=== PATIENT | male | born 1935 | race Caucasian/White ===

== ENCOUNTER 2017-03-23 21:55 | Inpatient (IN) | payer MEDICARE, BC ==
[~2017-03-23] VITALS: Ht 180.3 cm; Wt 126.0 kg
--- NOTE | ~2017-03-23 | ECH ---
Transthoracic Echocardiography Report (TTE) Demographics Patient Name ALEXANDER BRADY Date of Study 03/24/2017 Patient Number [id number] Visit Number [id number] Date of 1935 Room Number 408 Accession Number [id number] Gender Male Age 81 year(s) Referring María Elena Elizalde [employer] Kenya Escamilla [facility] Physician Romie Casillas MD Physician Interpreting Bk Vivar MD Fire Engine Pump Operator Physician Supervising Ordering Physician María Elena Elizalde MD, MD/P Nurse Stress Critical Care Cns Conclusions Summary Technically fair exam. The estimated left ventricular ejection fraction is 55-60% in underlying atrial fibrillation. Moderate to severe left ventricular hypertrophy. The left atrium is mildly dilated by LA volume index measurement. Moderate to severe mitral annular calcification. ild to moderate mitral valve stenosis. The mean gradient is 7.79mmHg. The mitral regurgitation is very eccentric and the jet is anteriorly directed making it difficult to quantify severity. Mitral regurgitation is at least moderate. The patient is known to have a 25mm St Erich bioprosthetic aortic valve with a mean gradient of 8mmHg. The prosthetic aortic valve appears to function normally with no perivalvular leak. There is moderate pulmonary hypertension. The pulmonary pressure (RVSP) is 63 mmHg. Procedure Type of Study TTE procedure:Echo Complete SF. Procedure Date Date: 03/24/2017 Start: 09:25 AM Technical Quality: Fair due to body habitus. Indications:Shortness of breath, Congestive heart failure, Atrial fibrillation and Prosthetic valve function. Additional Indications:pacemaker Appropriate Use Criteria: 9 Height: 71 inches Weight: 274 pounds BSA: 2.41 m Rhythm: Atrial fibrillation HR: 70 bpm BP: 126/65 mmHg M-Mode/2D Measurements LV Diastolic Dimension: 3.95 cm LV Systolic Dimension: 2.42 cm LV Septum Diastolic: 2.04 cm LV PW Diastolic: 1.41 cm AO Root Dimension: 2.96 cm LA Dimension: 5.53 cm RV Diastolic Dimension: 3.97 cm LA volume: 92.8 ml LA volume index: 39 ml/m LVOT VTI: 21.68 cm RV Base: 4.1 cm RV Mid: 2.8 cm RV Length: 7.2 cm Doppler Measurements AV Peak Velocity: 1.95 m/s MV Peak E-Wave: 1.56 m/s AV Peak Gradient: 15.21 mmHg AV Mean Gradient: 8.33 mmHg MV P1/2t: 60.1 msec LVOT Peak Velocity: 1.4 m/s MV Mean Gradient: 7.79 mmHg AV P1/2t: 451.9 msec MV Deceleration Time: 212.6 msec TR Velocity:3.81 m/s MV Area (PHT): 3.66 cm TR Gradient:58.06 mmHg PV Peak Velocity: 1 m/s Estimated RAP:5 mmHg PV Peak Gradient: 4.02 mmHg Estimated RVSP: 63 mmHg Estimated PASP: 63.06 mmHg RA Area: 24.47 cm Findings Left Ventricle The left ventricle is normal in size . Moderate to severe left ventricular hypertrophy. Diastolic function indeterminate due to patient's arrhythmia. Right Ventricle Right ventricle not well visualized. Left Atrium The left atrium is mildly dilated by LA volume index measurement. Right Atrium The right atrium is mild to moderately dilated. Mitral Valve Moderate to severe mitral annular calcification. Mild to moderate mitral valve stenosis. The mean gradient is 7.79mmHg. The mitral regurgitation is very eccentric and the jet is anteriorly directed making it difficult to quantify severity. Mitral regurgitation is at least moderate. Calcified chordae noted. Aortic Valve The patient is known to have a 25mm St Erich bioprosthetic aortic valve with a mean gradient of 8mmHg. The prosthetic aortic valve appears to function normally with no perivalvular leak. Tricuspid Valve Normal tricuspid valve structure and function. Mild-moderate tricuspid regurgitation by color Doppler. There is moderate pulmonary hypertension. The pulmonary pressure (RVSP) is 63 mmHg. Pulmonic Valve Normal pulmonic valve structure and function. Trivial pulmonic valve regurgitation by color Doppler. Pericardial Effusion No evidence of pericardial effusion. Epicardial fat pad noted. Miscellaneous Visualized portions of the aortic root and ascending aorta appear normal in size. Pleural Effusion No evidence of pleural effusion. Contractility Score LV regional wall motion:(0-Non visualized 1-Normal 2-Hypokinesis 3-Akinesis 4-Dyskinesis 5-Aneurysm) Signature
[~2017-03-23 21:55] MED LIST: ASPIRIN EC81 MG PO; BACTROBAN OINT.22 GM TP; CELEXA DPS20 MG PO; CELEXA40 MG PO; COREG DPS12.5 MG PO; COUMADIN2.5 MG PO; COUMADIN5 MG PO; DELTASONE DPS10 MG PO; DUONEB DPS3 ML IH; ECOTRIN81 MG PO; GLIPIZIDE ER2.5 MG PO; GLUCOTROL DPS5 MG PO; LASIX DPS20 MG PO; LASIX DPS80 MG PO; LIPITOR DPS40 MG PO; MAALOX DPS30 ML PO; MAPAP PM (TYLEN1 TAB PO; MUCINEX600 MG PO; OMEGA-3 DPS1000 MG PO; POTASSIUM PO; PRILOSEC DPS20 MG PO; PROSCAR DPS5 MG PO; PROVENTIL HFA6.7 GM IH; SANCTURA20 MG PO; SOTALOL PO; SOTALOL120 MG PO; SURFAK DPS240 MG PO; SURFAK240 MG PO; SYMBICORT 16010.2 GM IH; SYMBICORT160 MCG/6 IH; THERA1 EACH PO; TYLENOL DPS325 MG PO; VIBRAMYCIN-DPS100 M2 PO; VITAMIN D3400 UNIT PO; ZESTRIL DPS20 MG PO; ZYRTEC DPS10 MG PO
--- NOTE | 2017-03-26 10:13 | CO ---
ADMIT: 03/24/2017 RM/LOC: 316 [facility] MR#: [id number] [address] [address] ALEXANDER BRADY [address] [place] [address] Consultation SEX: M AGE: 81 : 1935 DATE OF CONSULTATION: 03/24/2017 ATTENDING PHYSICIAN: Bibi Ring MD CONSULTING PHYSICIAN: Eric Thomas MD HISTORY OF PRESENT ILLNESS: Mr. Brady is a very pleasant, unfortunate, 81- year-old, white male with multiple medical problems, fairly complicated and complex. He has a history of chronic atrial fibrillation, previous porcine bioprosthetic aortic valve replacement, previous pacemaker, on rate control and anticoagulant therapy. He also has moderate pulmonary hypertension. He has significant restrictive lung disease, carries a diagnosis of COPD, but has never smoker, and reviewing the most recent pulmonary function testing that I had actually showed normal flow rates, with an FEV1/FVC ratio of 75%. The FVC was low at 44% and FEV1 of 51%. He is on chronic oxygen therapy. Pulmonary history is significant for fall at least 2 or almost 3 years ago with an acute ground level fall, multiple rib fractures on the left side. He had what appears to be hemothorax, eventually developed into a loculated pleural effusion/pleural rind and trapped lung on the left side. As mentioned above, he subsequently is on chronic oxygen therapy at 3 L/minute. He was last hospitalized at [facility] in November 2016. He was brought into the Emergency Department on 03/23/2017 with increasing shortness of breath. Shortness of breath was rather sudden in onset. It lasted for about a day. He had been doing fairly well throughout most of the day on the , and then after dinner, his went to bed around 9 o'clock. He started experiencing significant shortness of breath, called her, and she summoned the rescue squad, who brought him into the emergency department, where he was evaluated. Initially in the Emergency Department, was reported to have some rhonchi and wheezes. He was placed on BiPAP, and stabilized. Was transferred to the floor, but requiring relatively high levels of supplemental oxygen. Was really unable to maintain his breathing without the BiPAP. He had subsequently transferred to the ICU and placed on high-flow oxygen via Airvo, currently at 50% with saturations in the mid 90s and relatively comfortable. He currently denies any chest pain. Denies significant cough or sputum production. Does have history of obstructive sleep apnea, supposed to be on CPAP, but ADMIT: 03/24/2017 RM/LOC: 316 [facility] MR#: [id number] [address] [place] [id number] ALEXANDER BRADY [address] [place] [address] Consultation SEX: M AGE: 81 : 1935 admits that he has not really been using it on a regular basis. PAST MEDICAL HISTORY: Significant for aortic valve disease. He underwent replacement with porcine St. Erich bioprosthetic valve. He has a history of moderate pulmonary hypertension, and current echocardiogram shows right ventricular systolic pressure of 68 mmHg. He has history of chronic atrial fibrillation, has a pacemaker in place, and is on combination of rate control and anticoagulant therapy. He has had previous partial colectomy for benign process. He has diabetes mellitus. He has morbid obesity. ALLERGIES: HE HAS NO KNOWN OR LISTED MEDICAL ALLERGIES. MEDICATIONS: List of home medications reviewed in the electronic medical record includes: 1. Glipizide 2.5 mg per evening. 2. Citalopram 20 mg daily. 3. Multivitamin daily. 4. Carvedilol 12.5 mg b.i.d. 5. Finasteride 5 mg daily. 6. Trospium 20 mg b.i.d. 7. Furosemide 80 mg b.i.d. 8. Warfarin 5 mg alternating with 2.5 mg. 9. Aspirin 81 mg daily. 10.Symbicort 160/4.5 two puffs b.i.d. 11.Cetirizine 10 mg daily. 12.Fish oil 2 g b.i.d. 13.Omeprazole 20 mg daily. 14.Surfak 240 mg daily. SOCIAL HISTORY: He is , retired, lives at home with his . He is a never smoker. FAMILY HISTORY: Noncontributory. REVIEW OF SYSTEMS: As above. All organ systems reviewed. Significant positives and negatives discussed above. Additionally, he and his very fastidious about monitoring his weight. They also watch for any swelling. As mentioned above, he denies any chest pain or chest pressure. His only significant complaint was that he felt that he had abdominal bloating yesterday after dinner, but no recent change in bowel or bladder function, no diarrhea or constipation. He does have known history of aspiration, but is very careful with his diet, taking small bites, using chin tuck, and does not admit to any recent episodes ADMIT: 03/24/2017 RM/LOC: 316 [facility] MR#: [id number] [address] [place] [id number] ALEXANDER BRADY [address] [place] [address] Consultation SEX: M AGE: 81 : 1935 of aspiration. PHYSICAL EXAMINATION: VITAL SIGNS: Currently, afebrile, T-max 99.6. Blood pressure currently 178/93, pulse was 76. Oxygen saturation was 93% on 50% Airvo high-flow nasal cannula. Weight was 274 pounds. GENERAL: This is a well developed, well nourished, obese white male, currently in no acute respiratory distress on the high-flow Airvo. HEENT: Head to be normocephalic and atraumatic. Pupils equal and reactive. Nares patent with clear drainage. Posterior hypopharynx with an excess amount of soft tissue, Mallampati score of III. NECK: Supple. No jugular venous distention. CHEST: Decreased diaphragm excursion, mild to moderate kyphosis, diminished breath sounds particularly in the left lung base, but no rales, rhonchi, or wheezes were noted. HEART: Irregular, with a 2/6 systolic murmur. ABDOMEN: Obese, soft, nondistended, and nontender. Normal bowel sounds. No guarding or rigidity is noted. No organomegaly palpable. No hernias noted with the exception of an umbilical hernia. EXTREMITIES: With trace of lower extremity edema, but good peripheral pulses. No focal neurologic deficits noted. Mood and affect were appropriate. DIAGNOSTIC DATA: Review of his chest x-ray shows chronic cardiomegaly. Shows some chronic interstitial changes in the lung bases, atelectasis in the left lung, with loculated effusion on the left and previous rib fractures. Other labs reviewed are relatively unremarkable. ASSESSMENT AND PLAN: He is admitted with acute on chronic hypoxic respiratory failure, which is multifactorial. He has severe restrictive lung disease secondary to probable previous fall with rib fractures and loculated hemothorax as well as obesity. At this point in time, we will continue supplemental oxygen. Continue nebulizer treatments. He has been started on the antibiotic. We will continue this until we get the cultures back. He does have mild elevation of his white blood cell count with a left shift, but procalcitonin level was normal. He has morbid obesity. He has obstructive sleep apnea on chronic oxygen therapy though intolerant of CPAP. He has history of chronic atrial fibrillation with pacemaker in place, on rate ADMIT: 03/24/2017 RM/LOC: 316 [facility] MR#: [id number] [address] [id number] ALEXANDER BRADY [address] [place] [address] Consultation SEX: M AGE: 81 : 1935 control on chronic anticoagulant therapy. He has previous history of porcine aortic valve replacement. He has diabetes mellitus type 2. Significant debility and deconditioning. At this point in time, continue with his supplemental oxygen, nebulized medications, continue the IV antibiotics and IV diuresis. CT scan is ordered, we will see what that shows, if that directs us at any other way and follow here with you while in the hospital. Eric Thomas MD/ selenal JOB #: [id number] CC: Bibi Ring MD, Attending Physician Bibi Ring MD, Family Physician
--- NOTE | 2017-03-28 01:25 | ER ---
ADMIT: 03/23/2017 RM/LOC: ER [facility] MR#: [id number] [address] [phone] ALEXANDER BRADY [place] [address] [place] [address] Emergency Room Report SEX: M AGE: 81 : 1935 DATE: 03/23/2017 See T-sheet for complete H and P. ADDENDUM: CHIEF COMPLAINT: Shortness of breath. HISTORY OF PRESENT ILLNESS: An 81-year-old male, comes in complaining of shortness of breath that has been going on over the past approximately 8 hours, but got significantly worse around 7:00 p.m. this evening. He has had this happen before. He is treated for CHF and has COPD. For his COPD, he is normally on 3 L of oxygen all the time and uses CPAP at night and sees a starch mangle tender in [place]. He denies any chest pain. He has not been having any weight gain that he is aware of or new swelling in his lower extremities. Denies any fevers or chills. REVIEW OF SYSTEMS: A 10-point review of systems is done and otherwise negative except as in HPI. PAST MEDICAL HISTORY: Significant for chronic AFib, coronary artery disease, hypertension, COPD. PAST SURGICAL HISTORY: The patient has had an appendectomy, resection of part of his colon, aortic valve replacement with porcine valve, and thoracentesis of left-sided pleural effusion. MEDICATIONS: See T-sheet. He does take: 1. Lasix. 2. Coumadin. ALLERGIES: NONE. SOCIAL HISTORY: Denies smoking, drug, or alcohol use. Lives with his . PHYSICAL EXAMINATION: See T-sheet for complete physical exam. GENERAL: The patient is in mild respiratory distress on arrival and tachypneic. LUNGS: He does have some rhonchi and wheezes throughout and decreased breath sounds in the bases. HEART: He does have an irregular rhythm, but not tachycardic. LABORATORY AND IMAGING DATA: Chest x-ray shows scarring on the left side which does not appear new, but likely does have increased pulmonary edema and CHF. His white count is 12.4, platelets 144. Chemistries are normal other than a BUN of 29 and glucose of 165, with BNP is 4578, procalcitonin is less than 0.05, and lactic acid is 1.2. Urinalysis is normal and INR is 2.53. ABG on supplemental oxygen and BiPAP shows a pH 7.4, pCO2 of 45.6, and PO2 of 80. EKG shows AFib, paced rhythm with a rate of 70. ADMIT: 03/23/2017 RM/LOC: ER [facility] MR#: [id number] [address] [address] ALEXANDER BRADY [address] [place] [address] Emergency Room Report SEX: M AGE: 81 : 1935 EMERGENCY DEPARTMENT COURSE: We did continue the patient on BiPAP as he was on it when he arrived. He did get breathing treatments en route by EMS. He also received 80 mg of Lasix IV en route. The patient and his report that he is much more comfortable on presentation to the ER than he was at home and during transportation here by EMS. Our workup here showed that he likely has worsening CHF, and I believe he would benefit from further management of his CHF with admission. I did order the patient a dose of Levaquin even though I think this is not likely pneumonia, but with his severe lung disease, we will cover him with initial dose of Levaquin. I spoke to Dr. Gunderson, who is on for the patient's primary care physician, Dr. Ring, who will be writing admission orders. He is admitted in improved condition with; DIAGNOSES: 1. Chronic obstructive pulmonary disease exacerbation. 2. Shortness of breath. 3. Congestive heart failure. 4. Chronic atrial fibrillation. Navneet Cordoba MD/ mango JOB #: [id number] CC: Navneet Cordoba MD, Attending Physician
--- NOTE | 2017-04-05 08:28 | HP ---
ADMIT: 03/24/2017 RM/LOC: 408 [facility] MR#: [id number] [address] [address] ALEXANDER BRADY [address] [place] [address] History and Physical SEX: M AGE: 81 : 1935 DATE OF SERVICE: HISTORY OF PRESENT ILLNESS: Mr. Brady presents to the ER with increasing shortness of breath over the last 24 hours with some weight gain of approximately 4 pounds over the course of the week. He is admitted with increasing shortness of breath. He has a past medical history of diastolic heart failure, chronic atrial fibrillation, history of permanent pacemaker status post aortic valve replacement on chronic anticoagulation. His last echo was done in 2016, which showed evidence of left atrial enlargement, ejection fraction 55%, mild concentric LVH, normal ventricular structure, left atrium is severely dilated Saint Erich aortic valve, mild aortic regurgitation, mild tricuspid regurgitation, moderate pulmonary hypertension. He is on chronic anticoagulation. He has had a history of severe COPD. He is CPAP dependent at night. O2 dependent. History of sleep apnea utilizing CPAP, obesity, history of permanent pacemaker, history of hypertension. He has a history of chronic renal insufficiency, history of antithrombin three deficiency, on chronic anticoagulation. He is status post partial colectomy for benign process as well as aortic valve replacement. He was seen and evaluated in the emergency room with increasing shortness of breath earlier this morning. His pH was 7.401, pCO2 of 45, PO2 of 80, sodium 138, potassium 4.0, BUN and creatinine 33 and 1.5. Blood sugar 170, CK-MB, troponin were within normal limits. BNP was elevated at 4576. INR is 2.50. White count 10.5, hemoglobin 14.0, and platelet count 150,000. UA was negative. Chest x- ray showed cardiomegaly with interstitial thickening, ground-glass opacifications on left side, questionable pleural effusion. At this time, he is admitted for concerns about COPD exacerbation as well as progressive worsening diastolic heart failure. In the emergency room, he was subsequently transferred to the general floor. SOCIAL HISTORY: He lives with his . No tobacco or alcohol. FAMILY HISTORY: Noncontributory. REVIEW OF SYSTEMS: As per HPI. He has not had any chest pain or chest pressure. Has had progressive increasing shortness of breath and respiratory distress. Does report a cough with some very mild yellow sputum. He has had 5 pounds of weight gain. Does not have any peripheral edema that he is aware of. He does complain of some vague nausea, sickness to his stomach but has not had any vomiting. CURRENT MEDICATIONS: He is on: 1. Carvedilol 12.5 mg b.i.d. 2. Citalopram 20 mg daily. 3. Coumadin 5 mg daily. 4. Finasteride 5 mg daily. 5. Lasix 80 b.i.d. 6. Glipizide 5 mg. 7. Symbicort a.m. and p.m., 2 puffs. ADMIT: 03/24/2017 RM/LOC: 408 [facility] MR#: [id number] [address] [place] [id number] [facility] [address] [facility] [place] [address] History and Physical SEX: M AGE: 81 : 1935 PHYSICAL EXAMINATION: GENERAL: He is alert. He is dyspneic. VITAL SIGNS: His SaO2 on room air will be 92 at rest but with talking and moving around will drop into the mid 80s. HEENT: Normal. HEART: Irregular rhythm with valvular click. LUNGS: Clear, but diminished to auscultation. ABDOMEN: Rounded, protuberant. Positive bowel sounds present. Nontender. EXTREMITIES: No evidence of edema. ASSESSMENT AND PLAN: Admission of an elderly white gentleman who has: 1. Severe chronic obstructive pulmonary disease. 2. History of chronic interstitial scarring left base with interstitial lung disease. 3. Chronic ongoing hypoxia and hypercarbia. 4. History of recurrent acute right-sided lower lobe pneumonia, but no significant evidence of pneumonia at this time. 5. Severe chronic obstructive pulmonary disease, concerns about early pneumonia versus exacerbation of bronchitis, history of chronic infiltrate. 6. Sleep apnea. 7. Hypoxia. 8. Diastolic heart failure. 9. History of known left atrial enlargement, status post aortic valve replacement. 10.Mild pulmonary hypertension. 11.Permanent pacemaker. 12.Chronic atrial fibrillation on chronic anticoagulation. 13.Diabetes. 14.Evidence of nausea with abdominal fullness. At this time, we will evaluate that with an ultrasound of his abdomen. He will be started on IV antibiotics as well as IV diuresis. We will ask Cardiology to follow as he sees them as an outpatient. In addition, aggressive pulmonary hygiene with DuoNeb breathing treatments as well as with his continue his CPAP at night and continuous oxygen therapy. We will continue to follow closely. Bibi Ring MD/ mango JOB #: [id number] CC: Bibi Ring MD, Attending Physician Bibi Ring MD, Family Physician
--- NOTE | 2017-04-08 08:16 | DS ---
ADMIT: 03/24/2017 RM/LOC: 301 [facility] MR#: [id number] [address] [address] ALEXANDER BRADY [address] [place] [address] Discharge Summary SEX: M AGE: 81 : 1935 ADMISSION DATE: 03/24/2017 DISCHARGE DATE: 03/30/2017 SUMMARY: His diagnosis at the time of his was progressive respiratory failure, hypoxia, CO2 retention, shock liver, evidence of congestive heart failure, worsening pneumonia, history of permanent pacemaker, chronic atrial fib, diabetes, sleep apnea, and history of diastolic heart failure. Mr. Brady was admitted to [facility] on 03/24/2017 with increasing shortness of breath. He was seen and evaluated in the emergency room. His pH was 7.40, pCO2 of 45, pO2 of 80, BNP of 4573, of INR of 2.50. His prior chest x-ray showed cardiomegaly with interstitial thickening, ground-glass opacities with questionable left-sided pleural effusion. He was initially admitted and placed on IV antibiotics as well as diuresis with Lasix. He in addition underwent further assessment with CT of his chest with contrast. He was seen by myself as well as was followed very closely by Pulmonary Medicine. With aggressive medical management, he had progressive shortness of breath, CO2 retention and required aggressive support with BiPAP. I was concerned that his interstitial pneumonia was secondary to aspiration versus heart failure. With diuresis, he had some slowly worsening progressive impairment in kidney function. Discussion was undertaken with the patient and family on 03/26 as he was having increasing shortness of breath and respiratory distress. It was felt that if needed he will be placed on a ventilator. He had progressive decline in his respiratory processes and was placed on the ventilator on 03/26 at 2:30 in the afternoon. He was at that time started on Levophed for blood pressure management. He had progressive increase and has oxygen needs as well as developed marked elevation in liver function studies with development of progressive renal insufficiency. At that time, family made a decision and a decision was made for supportive care, and he subsequently was extubated and shortly afterwards. For the full body of his hospitalization, please see his medical records. Bibi Ring MD/ selenal JOB #: [id number] CC: Bibi Ring MD, Attending Physician Bibi Ring MD, Family Physician
--- NOTE | 2017-04-23 10:32 | CO ---
ADMIT: 03/24/2017 RM/LOC: [address] [facility] MR#: [id number] [address] [id number] ALEXANDER BRADY [address] [place] [address] Consultation SEX: M AGE: 81 : 1935 CORRECTED: 03/25/2017 0543 DJS DATE OF CONSULTATION: 03/24/2017 ATTENDING PHYSICIAN: Bibi Ring MD CONSULTING PHYSICIAN: Toni Grubbs MD REASON FOR CONSULT: Shortness of breath. Miranda Solano RN, scribing for Dr. Toni Grubbs. HISTORY OF PRESENT ILLNESS: Paul is a very pleasant 81-year-old gentleman, I have been asked to see in Cardiology consultation by Dr. Ring for shortness of breath. He follows with me regularly in [facility]. He was last seen on 02/26 at the office. He has history of normal coronaries per cardiac catheterization in 2009. 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 He does have history of permanent atrial fibrillation for which he is asymptomatic on anticoagulation with Coumadin. He also has history of hypertension, hyperlipidemia, and diabetes. He has family history of premature coronary artery disease as well. Paul has history of diastolic heart failure and COPD. Last echocardiogram was in May of 2016, showing ejection fraction of 55% with moderate pulmonary hypertension. Normal function of bioprosthetic aortic valve with severe left atrial enlargement. Last office visit on 02/26, his weight was 274 pounds. He was euvolemic. Denying any complaints at that time. He has done well from a rate strategy standpoint on Coreg as he did have worsening shortness of breath and fluid retention on sotalol in the past. Paul presented to [facility] yesterday with complaints of worsening shortness of breath and fever around 100.7. He states that he has not noted any significant peripheral edema, but was hypoxic and required BiPAP last night. He does have sleep apnea and uses CPAP at home. He denies any chest pain, palpitations, or presyncope. Currently, he is sitting up in the chair and has labored breathing on nasal cannula. His oxygen saturations are mid 80s to low 90s. PAST MEDICAL HISTORY: 1. History of tissue aortic valve replacement. 2. Hyperlipidemia. 3. Hypertension. 4. Diabetes. 5. Permanent atrial fibrillation. 6. Antithrombin III deficiency. 7. Osteoarthritis. 8. Chronic renal insufficiency. 9. COPD. 10.Depression. 11.Gout. ADMIT: 03/24/2017 RM/LOC: [address] [facility] MR#: [id number] [address] [place] [id number] ALEXANDER BRADY [address] [place] [address] Consultation SEX: M AGE: 81 : 1935 12.Kidney stones. 13.Morbid obesity. PAST SURGICAL HISTORY: Includes: 1. Colon resection. 2. Back surgery. 3. Knee replacement. 4. Hip replacement. 5. Appendectomy. 6. Valve replacement surgery for heart. ALLERGIES: NO KNOWN MEDICATION ALLERGIES. MEDICATIONS: Home medications continued, include: 1. Glipizide 2.5 daily. 2. Citalopram 20 daily. 3. Multivitamin daily. 4. Carvedilol 12.5 b.i.d. 5. Finasteride 5 daily. 6. Trospium 20 b.i.d. 7. His Lasix p.o. has been held. He was given IV Lasix. 8. Warfarin 5 mg every day, but 2.5 on Wednesday. 9. Aspirin 81 daily. 10.Symbicort 160 twice daily. 11.Maalox 10 mL p.r.n. 12.Cetirizine daily as needed. 13.Fish oil 2000 mg twice daily. 14.Omeprazole 20 daily. 15.Surfak 240 daily p.r.n. 16.Tylenol PM at bedtime. 17.Acetaminophen p.r.n. FAMILY HISTORY: Family history of premature coronary artery disease. He had a grandfather who had IL at the age of 64. His father also had a myocardial infarction, and positive family history of stroke in a brother, positive family history of diabetes, positive family history of cancer. SOCIAL HISTORY: Paul is to [place], they live at home. He has five children, all daughters. He still farms part-time. No tobacco use. No alcohol use. REVIEW OF SYSTEMS: GENERAL: Increased fatigue over the last few days; recent fever, current 99.0, he was 100.7 on admit. Weight is stable from 02/26 at 274. EYES: No vision changes, double vision, blurry vision. THROAT MOUTH AND EARS: Some hearing loss. Denies any sinus congestion or sore throat. RESPIRATORY: He is hypoxic. He is having difficulty breathing. He has ADMIT: 03/24/2017 RM/LOC: [address] [facility] MR#: [id number] [address] [place] [id number] ALEXANDER BRADY [address] [place] [address] Consultation SEX: M AGE: 81 : 1935 decreased breath sounds. He has history of COPD and obstructive sleep apnea, uses CPAP. Currently, he has labored breathing. No hemoptysis. GASTROINTESTINAL: Denies any current abdominal discomfort. He does have history of a colon resection and appendectomy, but denies any GI bleeding currently. GENITOURINARY: Chronic renal insufficiency. Denies dysuria, hematuria, nocturia, urinary tract infection, or kidney stones. MUSCULOSKELETAL: History of gout and osteoarthritis. He has chronic back pain. ENDOCRINE: History of diabetes. Denies thyroid issues. HEMATOLOGIC: Denies history of anemia, easy bruising, or cancer. NEUROLOGIC: Denies chronic headaches, dizziness, syncope, stroke, seizures or numbness or tingling. PSYCHIATRIC: Denies history of mental illness or feelings of depression. PHYSICAL EXAMINATION: VITAL SIGNS: Blood pressure is 126/65, heart rate 74, respirations 28, temperature 99.0, Oxygenation anywhere from 85% to 90% on 6 L nasal cannula. GENERAL: Labored breathing. SKIN: [place], warm and dry. EYES: Sclerae clear. No xanthelasmas. ENT: Oral mucosa is pink and moist. No jugular venous distention or carotid bruits. LUNGS: Diminished left base. HEART: Regular soft systolic murmur. ABDOMEN: Obese. MUSCULOSKELETAL: Gait is normal. EXTREMITIES: No edema noted PSYCHIATRIC: Alert and oriented. Mood and affect are appropriate. LABORATORY AND DIAGNOSTIC DATA: Echocardiogram performed this morning, shows ejection fraction of 55% to 60%, and atrial fibrillation, moderate to severe left ventricular hypertrophy, moderate to severe mitral annular calcification, [id number] mitral valve stenosis, at least moderate mitral regurgitation, bioprosthetic aortic valve with normal function. RVSP of 63 for moderate pulmonary hypertension. Sodium 138, potassium 4.0, BUN 30, creatinine 1.5, glucose 170. AST 14, ALT 20, magnesium 2.1. CK 67, MB 1.2, troponin 0.031, proBNP 4578, INR 2.5. White blood cell count 10.5, hemoglobin 13.6, hematocrit 42.3, platelets 150. ASSESSMENT AND PLAN: 1. Shortness of breath. 2. History of heart failure with preserved ejection fraction. 3. Prior aortic valve replacement. 4. Permanent atrial fibrillation. 5. Permanent pacemaker insertion. 6. Obesity. ADMIT: 03/24/2017 RM/LOC: [address] [facility] MR#: [id number] [address] [place] [id number] ALEXANDER BRADY [address] [place] [address] Consultation SEX: M AGE: 81 : 1935 Ray does have a history of fluid retention, but his weight is currently stable. He has little level evidence of significant fluid retention. Echocardiogram was already performed. I would recommend trying some IV Lasix and see how he responds. I am concerned about recurrent pneumonias and aspiration. Thank you for the consultation. "I have read and agree with the documentation that has been completed regarding this visit. By signing this record, I attest that the documentation was completed in my physical presence and is an accurate record of the encounter." Miranda Solano RN / Toni Grubbs MD / [employer] JOB #: [id number] CC: Bibi Ring MD, Attending Physician Bibi Ring MD, Family Physician CORRECTED: 03/25/2017 0543 DJS
== END 2017-03-30 10:13 | disposition expired | DRG 207 ==
LOC: ER 21:55 → 3ICU 03-24 00:27 → 4PCU 03-24 00:27 → 3ICU 03-24 12:57
PROVIDERS: ADMIT Internal Medicine
PROC: 0BH17EZ Insertion of Endotracheal Airway into Trachea, Via Natural or Artificial Opening (ICD-10-PCS; principal; 2017-03-26)
PROC: 5A1955Z Respiratory Ventilation, Greater than 96 Consecutive Hours (ICD-10-PCS; principal; 2017-03-26)
PROC: 3E0G76Z Introduction of Nutritional Substance into Upper GI, Via Natural or Artificial Opening (ICD-10-PCS; principal; 2017-03-26)
DX: J44.1 Chronic obstructive pulmonary disease with (acute) exacerbation (principal); K72.00 Acute and subacute hepatic failure without coma; J96.21 Acute and chronic respiratory failure with hypoxia; J69.0 Pneumonitis due to inhalation of food and vomit; J84.9 Interstitial pulmonary disease, unspecified; N17.9 Acute kidney failure, unspecified; I27.2 Other secondary pulmonary hypertension; J96.02 Acute respiratory failure with hypercapnia; D68.59 Other primary thrombophilia; I50.32 Chronic diastolic (congestive) heart failure; I13.0 Hypertensive heart and chronic kidney disease with heart failure and stage 1 through stage 4 chronic kidney disease, or unspecified chronic kidney disease; Z51.5 Encounter for palliative care; E11.22 Type 2 diabetes mellitus with diabetic chronic kidney disease; Z99.81 Dependence on supplemental oxygen; I48.2 Chronic atrial fibrillation; I25.10 Atherosclerotic heart disease of native coronary artery without angina pectoris; E66.9 Obesity, unspecified; I08.2 Rheumatic disorders of both aortic and tricuspid valves; R09.02 Hypoxemia; E78.5 Hyperlipidemia, unspecified; N18.9 Chronic kidney disease, unspecified; F32.9 Major depressive disorder, single episode, unspecified; E66.01 Morbid (severe) obesity due to excess calories; Z82.49 Family history of ischemic heart disease and other diseases of the circulatory system; H91.90 Unspecified hearing loss, unspecified ear; G47.33 Obstructive sleep apnea (adult) (pediatric); Z95.0 Presence of cardiac pacemaker; Z95.3 Presence of xenogenic heart valve; Z79.01 Long term (current) use of anticoagulants; Z66 Do not resuscitate